=== PATIENT | female | born 1965 | race Caucasian/White ===

== ENCOUNTER 2019-12-02 20:04 | Emergency (ER) | payer MEDICAID ==
[~2019-12-02] VITALS: Ht 165.1 cm; Wt 77.3 kg
[2019-12-02 20:17] VITALS: BP 124/87
[2019-12-02] MEDS ORDERED: TETanus/Pertussis (Acell)/Diphther VAC/PF (Tdap-Adult) 0.5ml syringe IMVAC ONE (21:20)
[2019-12-02] MEDS ORDERED: HYDROcodone/acetaminophen 5mg/325mg tablet PO ONE (21:20)
[2019-12-02] MEDS ORDERED: HYDR-3965 PO (21:43)
[2019-12-02] MEDS ORDERED: CLIN-90 PO (21:43)
== END 2019-12-02 23:08 | disposition home or self-care (01) ==
LOC: ER 20:04
DX: S50.811A Abrasion of right forearm, initial encounter (principal); S61.551A Open bite of right wrist, initial encounter; Z98.890 Other specified postprocedural states; Z88.0 Allergy status to penicillin; Z79.2 Long term (current) use of antibiotics; Z79.899 Other long term (current) drug therapy; W54.0XXA Bitten by dog, initial encounter; Y93.89 Activity, other specified; Y92.89 Other specified places as the place of occurrence of the external cause; Y99.8 Other external cause status
CPT/HCPCS: 73090; 90471; 90715; 99283

== ENCOUNTER 2021-11-22 06:14 | Day surgery (SDC) | payer MEDICARE, MEDICAID ==
[2021-11-15 15:41] LABS: BASOPHILS # (AUTO) 0.1 X10'3 (0-0.2); BASOPHILS % (AUTO) 1.1 % (0-1); EOSINOPHILS # (AUTO) 0.1 X10'3 (0-0.9); EOSINOPHILS % (AUTO) 1.9 % (0-6); MEAN CORPUSCULAR HEMOGLOBIN 28.3 PG (27.0-31.0); MEAN CORPUSCULAR HGB CONC 33.4 g/dL (33.0-36.5); MEAN CORPUSCULAR VOLUME 84.6 FL (78-98); MEAN PLATELET VOLUME 8.3 FL (7.4-10.4); MONOCYTES # (AUTO) 0.4 X10'3 (0-0.9); NEUTROPHILS # (AUTO) 5.2 X10'3 (1.8-7.7); PRE OP HEMATOCRIT 40.7 % (35.0-45.0); PRE OP HEMOGLOBIN 13.6 g/dL (12.0-16.0); PRE OP PLATELET COUNT 262 X10'3 (140-440); RED BLOOD COUNT 4.82 X10'6 (4.20-5.60); RED CELL DISTRIBUTION WIDTH 13.9 % (11.5-14.5)
[2021-11-15 16:26] LABS: ALBUMIN 4.6 G/DL (3.4-5.0); ALBUMIN/GLOBULIN RATIO 1.4 (1.1-1.5); BLOOD UREA NITROGEN 22 MG/DL (7-18); BUN/CREATININE RATIO 28.2 (6.6-38.0); CALCIUM 9.4 MG/DL (8.5-10.1); CHLORIDE 102 MMOL/L (99-107); CREATININE 0.78 MG/DL (0.40-0.90); PRE OP ALT 37 U/L (30-65); PRE OP ANION GAP 10 (8-16); PRE OP AST 23 U/L (10-37); PRE OP BILIRUB, TOTAL 0.3 MG/DL (0.0-1.0); PRE OP GLUCOSE 99 MG/DL (70-104); PRE OP SODIUM 139 MMOL/L (135-145); TOTAL PROTEIN 7.8 G/DL (6.4-8.2); eGFR 77 ML/MIN
[2021-11-15 17:21] LABS: PLATELET FUNCTION (ADP) 114 SECONDS (63-104)
[~2021-11-22] VITALS: Ht 165.1 cm; Wt 85.0 kg
[2021-11-22] VITALS (8 sets, daily range): BP systolic 133–161; BP diastolic 78–93
[~2021-11-22 06:14] MED LIST: ACET-2319 PO; ALPR-624 PO; DIPH-735 PO; ESZO3TAB44 PO; GABA-530 PO; LEVO137T24 PO; METH-348 PO; diazepam 5mg tablet PO ONE; famotidine 20mg tablet PO ONE; ringers solution, lacted 1,000 ML IV SCH
[2021-11-22] MEDS: oxymetazoline 15 ML nasal spray NS SCH ×3 (06:43→08:44)
[2021-11-22] MEDS ORDERED: mupirocin 2% ointment 22GM ONE (07:13)
[2021-11-22] MEDS ORDERED: LIDOcaine 1% W/epiNEPHrine 1:100,000 20ml vial ONE (07:13)
[2021-11-22] MEDS ORDERED: cocaine 4% topical solution 4ml bottle ONE (07:13)
[2021-11-22] MEDS ORDERED: oxymetazoline 15 ML nasal spray NS ONE (07:14)
[2021-11-22] MEDS ORDERED: sevoflurane 250ml liquid IH ONE (08:02)
[2021-11-22] MEDS ORDERED: FENTANYL CITRATE/PF 50 MCG/1 ML VIAL ONE ×2 (08:04→08:11)
[2021-11-22] MEDS ORDERED: midazolam 1 mg/ML 2ml injection ONE (08:05)
--- NOTE | 2021-11-22 09:19 | NUR ---
Received from OR via [facility] , accompanied by Anesthesiologist GABRIELA and report given by Anesthesiolgist. BILATERAL NASAL PACKING INTACT, 20G RAC LR 100, VSS.MEDICATED FOR HTN ON ARRIVAL.WILL CONTINUE TO ASSESS. Addendum: 11/22/21 at 0938 by Blanka Patterson RN Amended: Links added.
[2021-11-22] MEDS ORDERED: proCHLORperazine 10 MG/2 ml inj IV PRN (09:30)
[2021-11-22] MEDS ORDERED: meperidine/PF 25mg/ml syringe IV PRN ×3 (09:30)
[2021-11-22] MEDS ORDERED: ringers solution, lacted 1,000 ML IV SCH (09:30)
[2021-11-22] MEDS ORDERED: ondansetron/PF 4mg/2ml inj IV PRN (09:30)
[2021-11-22] MEDS ORDERED: morphine 2 MG/ML inj. syringe IV PRN (09:30)
[2021-11-22] MEDS ORDERED: morphine 4 MG/ML inj SYRINge IV PRN (09:30)
[2021-11-22] MEDS ORDERED: salt irrigation nasal spray 45 ML SPRAY NS PRN (10:01)
[2021-11-22] MEDS ORDERED: propofol inj 20 ML IV ONE (10:15)
[2021-11-22] MEDS ORDERED: ondansetron/PF 4mg/2ml inj ONE (10:15)
[2021-11-22] MEDS ORDERED: labetalol 20mg/4ml (5mg/ml) syringe IV ONE (10:15)
[2021-11-22] MEDS ORDERED: dexamethasone sod phosphate 4mg/ml inj. ONE (10:15)
[2021-11-22] MEDS ORDERED: LIDOcaine 2% (20mg/ml) 5ml vial ONE (10:15)
--- NOTE | 2021-11-22 10:29 | NUR ---
IV D/C'D NO COMPLICATIONS. PT MET ALL D/C CRITERIA. MUSTACHE DRESSING IN PLACE, VSS. UNDERSTAND ALL D/C INSTRUCTIONS. ALL QUESTIONS ANSWERED. UPON D/C TO DAUGHTER, REINFORCED PT. NEEDS TO READ D/C PAPERWORK AGAIN WITH DAUGHTER. PT HAS NO QUESTIONS, SENT HOME WITH FAMILY Addendum: 11/22/21 at 1146 by Blanka Patterson RN Amended: Links added.
== END 2021-11-22 10:29 | disposition home or self-care (01) ==
LOC: PAS 06:14
PROVIDERS: ATTEND Otolaryngology
DX: J34.2 Deviated nasal septum (principal); J34.3 Hypertrophy of nasal turbinates; E06.3 Autoimmune thyroiditis; F41.9 Anxiety disorder, unspecified; Z20.822 Contact with and (suspected) exposure to COVID-19; Z98.890 Other specified postprocedural states; Z72.89 Other problems related to lifestyle; Z88.0 Allergy status to penicillin; Z79.899 Other long term (current) drug therapy; Z79.01 Long term (current) use of anticoagulants
CPT/HCPCS: 30140; 30520; 36415; 80053; 82948; 85025; 85576; 85610; 85730; 87635; 93005; A6402; C9250; C9803; J1100; J2250; J2405; J2704; J3010; J3490; J7030; J7120; U0003; U0005; Z7506; Z7508; Z7512; 88300; A4618; A7000

== ENCOUNTER 2022-02-08 14:21 | Emergency (ER) | payer MEDICARE, MEDICAID ==
[~2022-02-08] VITALS: Ht 165.1 cm; Wt 86.4 kg
[~2022-02-08 14:21] MED LIST changes: -diazepam 5mg tablet PO ONE; -famotidine 20mg tablet PO ONE; -ringers solution, lacted 1,000 ML IV SCH
[2022-02-08 15:05] VITALS: BP 152/92
[2022-02-08] MEDS ORDERED: DOXY100C43 PO (17:15)
== END 2022-02-08 18:03 | disposition home or self-care (01) ==
LOC: ER 14:21
DX: S46.321A Laceration of muscle, fascia and tendon of triceps, right arm, initial encounter (principal); Z98.890 Other specified postprocedural states; Z88.0 Allergy status to penicillin; Z79.2 Long term (current) use of antibiotics; Z79.899 Other long term (current) drug therapy; W54.0XXA Bitten by dog, initial encounter; Y93.89 Activity, other specified; Y92.89 Other specified places as the place of occurrence of the external cause; Y99.8 Other external cause status
CPT/HCPCS: 12002; 99282; 99283

== ENCOUNTER 2022-10-13 10:39 | Emergency (ER) | payer MEDICARE, MEDICAID ==
[~2022-10-13] VITALS: Ht 165.1 cm; Wt 87.0 kg
[2022-10-13 11:42] LABS: BASOPHILS # (AUTO) 0.1 X10'3 (0-0.2); EOSINOPHILS # (AUTO) 0.1 X10'3 (0-0.9); EOSINOPHILS % (AUTO) 1.8 % (0-6); HEMATOCRIT 42.7 % (35.0-45.0); HEMOGLOBIN 14.2 g/dl (12.0-16.0); LYMPHOCYTES # (AUTO) 0.8 X10'3 (1.1-4.8); LYMPHOCYTES % (AUTO) 11.5 % (21-51); MEAN CORPUSCULAR HEMOGLOBIN 27.8 PG (27.0-31.0); MEAN CORPUSCULAR HGB CONC 33.4 g/dL (33.0-36.5); MEAN CORPUSCULAR VOLUME 83.3 FL (78-98); MEAN PLATELET VOLUME 8.5 FL (7.4-10.4); MONOCYTES # (AUTO) 0.5 X10'3 (0-0.9); MONOCYTES % (AUTO) 7.6 % (2-12); NEUTROPHILS # (AUTO) 5.2 X10'3 (1.8-7.7); NEUTROPHILS % (AUTO) 78.1 % (42-75); PLATELET COUNT 268 X10'3 (140-440); RED BLOOD COUNT 5.12 X10'6 (4.20-5.60); RED CELL DISTRIBUTION WIDTH 13.3 % (11.5-14.5); WHITE BLOOD COUNT 6.6 X10'3 (4.5-11.0)
[2022-10-13 11:43] LABS: ALANINE AMINOTRANSFERASE 137 U/L (12-78); ALBUMIN 4.3 G/DL (3.4-5.0); ALBUMIN/GLOBULIN RATIO 1.2 (1.1-1.5); ALKALINE PHOSPHATASE 135 IU/L (46-116); ANION GAP 9 (8-16); ASPARTATE AMINO TRANSFERASE 87 U/L (10-37); BILIRUBIN,TOTAL 0.4 MG/DL (0.1-1.0); BLOOD UREA NITROGEN 14 MG/DL (7-18); BUN/CREATININE RATIO 18.7 (6.6-38.0); CHLORIDE 103 MMOL/L (99-107); CREATININE 0.75 MG/DL (0.40-0.90); GLUCOSE 114 MG/DL (70-104); LIPASE 126 U/L (73-393); SODIUM 140 MMOL/L (135-145); TOTAL CARBON DIOXIDE 28.5 MMOL/L (24-32); eGFR 81 ML/MIN
[2022-10-13 11:52] LABS: CALCIUM 9.3 MG/DL (8.5-10.1)
[2022-10-13] MEDS ORDERED: iohexol 300mg/ml 100ml inj. ONE (11:54)
[2022-10-13] MEDS ORDERED: PANT20TA18 PO (12:37)
[2022-10-13 12:48] LABS: CLARITY,URINE SLIGHTLY CLOUDY (Clear); COLOR,URINE YELLOW (Yellow); GLUCOSE, URINE NEGATIVE (Neg); KETONES,URINE NEGATIVE (Neg); LEUKOCYTE ESTERASE ,URINE NEGATIVE (Neg); NITRITES, URINE NEGATIVE (Neg); OCCULT BLOOD,URINE NEGATIVE (Neg); PROTEIN,URINE NEGATIVE (Neg); UROBILINOGEN,URINE 0.2 E.U/dL (0.2-1.0)
[2022-10-13 12:56] LABS: UA COLLECTION TYPE NON-SPECIFIED
[2022-10-13 12:57] LABS: URINE HCG NEGATIVE (NEG)
[2022-10-13 13:05] LABS: MUCUS STRANDS NONE SEEN /LPF (Neg); RBC,URINE 0-2 /HPF (0-2); SQUAMOUS EPITHELIAL CELL,UR MANY /LPF (FEW); WBC,URINE 0-4 /HPF (0-4)
[2022-10-13 13:06] LABS: BACTERIA,URINE 2+ /HPF (Neg)
[2022-10-13 13:30] VITALS: BP 137/83
== END 2022-10-13 13:31 | disposition home or self-care (01) ==
LOC: ER 10:40
DX: K21.9 Gastro-esophageal reflux disease without esophagitis (principal); K76.0 Fatty (change of) liver, not elsewhere classified; E78.00 Pure hypercholesterolemia, unspecified; E07.9 Disorder of thyroid, unspecified; Z88.0 Allergy status to penicillin; Z79.899 Other long term (current) drug therapy; Z79.1 Long term (current) use of non-steroidal anti-inflammatories (NSAID); Z79.2 Long term (current) use of antibiotics
CPT/HCPCS: 36415; 74177; 80053; 81001; 81025; 83690; 85025; 99285; J3490; Q9967

== ENCOUNTER 2023-08-12 10:57 | Emergency (ER) | payer MEDICARE, MEDICAID ==
[~2023-08-12] VITALS: Ht 165.1 cm; Wt 91.4 kg
[~2023-08-12 10:57] MED LIST changes: +PANT20TA18 PO
[2023-08-12 11:01] VITALS: BP 134/88; PULSE 98; RESP 18; TEMP 97; O2SAT 98
[2023-08-12] MEDS ORDERED: CEFD300C3 PO (11:05)
--- NOTE | 2023-08-12 11:08 | NUR ---
PT SEEN AND DC FROM TRIAGE BY ANIMAL PATHOLOGY TEACHER
== END 2023-08-12 11:12 | disposition home or self-care (01) ==
LOC: ER 10:57
DX: H65.02 Acute serous otitis media, left ear (principal); E78.00 Pure hypercholesterolemia, unspecified; E03.9 Hypothyroidism, unspecified; Z88.0 Allergy status to penicillin; Z79.899 Other long term (current) drug therapy
CPT/HCPCS: 99283

== ENCOUNTER 2023-09-08 12:05 | Emergency (ER) | payer MEDICARE, MEDICAID ==
[~2023-09-08] VITALS: Ht 165.1 cm; Wt 92.8 kg
[2023-09-08] MEDS ORDERED: BENZ-38 PO (13:11)
[2023-09-08 13:21] VITALS: BP 146/94; PULSE 88; RESP 19; TEMP 97.8; O2SAT 96
== END 2023-09-08 13:26 | disposition home or self-care (01) ==
LOC: ER 12:05
DX: J01.90 Acute sinusitis, unspecified (principal); R05.9 Cough, unspecified; H65.92 Unspecified nonsuppurative otitis media, left ear; Z88.0 Allergy status to penicillin; Z79.899 Other long term (current) drug therapy
CPT/HCPCS: 99283

== ENCOUNTER 2023-11-20 10:54 | Day surgery (SDC) | payer MEDICARE, MEDICAID ==
[2023-11-20] VITALS (11 sets, daily range): BP systolic 121–146; BP diastolic 75–86; PULSE 83–89; RESP 12–16; TEMP 97.1; O2SAT 93–99
[~2023-11-20] VITALS: Ht 165.1 cm; Wt 91.0 kg
[2023-11-20] MEDS: famotidine 20mg tablet PO ONE (05:30)
[2023-11-20] MEDS: oxymetazoline 15 ML nasal spray NS ONE ×2 (05:30→14:52)
[2023-11-20] MEDS: tranexamic acid inj. 1,000 MG in normal saline IV soln 100ML IV ONE (05:30)
[~2023-11-20 10:54] MED LIST changes: -ACET-2319 PO; +DARI50TA PO; -DIPH-735 PO; -ESZO3TAB44 PO; -GABA-530 PO; +GABA800T11 PO; +LEVO125T PO; -LEVO137T24 PO; -METH-348 PO; +METH27TA11 PO; -PANT20TA18 PO; +ROSU10TA28 PO; +methylPREDNISolone acetate 80mg/ml inj**IM only ONE; +ringers solution, lacted 1,000 ML IV SCH
[2023-11-20] MEDS ORDERED: fentaNYL/PF 50MCG/1 ML 2ML syringe IV PRN ×2 (11:15)
[2023-11-20] MEDS ORDERED: hydrALAZINE 20mg/ml inj. IV PRN (11:15)
[2023-11-20] MEDS ORDERED: morphine 4 MG/ML inj SYRINge IV PRN (11:15)
[2023-11-20] MEDS ORDERED: ringers solution, lacted 1,000 ML IV SCH (11:15)
[2023-11-20] MEDS ORDERED: ondansetron/PF 4mg/2ml inj IV PRN (11:15)
[2023-11-20] MEDS ORDERED: labetalol 20mg/4ml (5mg/ml) syringe IV PRN (11:15)
[2023-11-20] MEDS ORDERED: morphine 2 MG/ML inj. syringe IV PRN (11:15)
[2023-11-20] MEDS: clindamycin-Cleocin 900mg/D5W 50 ML IV ONE (13:00)
[2023-11-20] MEDS ORDERED: LIDOcaine 2% (20mg/ml) 5ml vial ONE (13:06)
[2023-11-20] MEDS ORDERED: fentaNYL/PF 50MCG/1 ML 2ML syringe ONE (13:06)
[2023-11-20] MEDS ORDERED: ondansetron/PF 4mg/2ml inj ONE (13:06)
[2023-11-20] MEDS ORDERED: midazolam 1 mg/ML 2ml injection ONE (13:06)
[2023-11-20] MEDS ORDERED: dexamethasone sod phosphate 4mg/ml inj. ONE (13:06)
[2023-11-20] MEDS ORDERED: propofol inj 20 ML IV ONE (13:06)
[2023-11-20] MEDS ORDERED: sevoflurane 250ml liquid IH ONE (13:13)
[2023-11-20] MEDS ORDERED: labetalol 20mg/4ml (5mg/ml) syringe IV ONE (13:34)
[2023-11-20] MEDS ORDERED: acetaminophen 1,000mg/100ml IV 100 ML IV ONE (13:43)
[2023-11-20] MEDS: cocaine 4% topical solution 4ml bottle ONE (14:36)
[2023-11-20] MEDS: LIDOcaine 1% w/EPI 1:100,000 inj. MDV 50 ML VIAL ONE (14:37)
[2023-11-20] MEDS: epiNEPHrine 1 mg/ml 30ml MDV ONE (14:37)
[2023-11-20] MEDS: mupirocin 2% ointment 22GM ONE (14:42)
[2023-11-20] MEDS: dexamethasone 4mg/ml inj IV ONE (14:53)
[2023-11-20] MEDS: triamcinolone acetonide 40mg/ml inj IJ ONE (15:00)
[2023-11-20] MEDS: mupirocin 2% nasal ointment 1gm UD NS ONE (16:03)
[2023-11-20] MEDS: salt irrigation nasal spray 45 ML SPRAY NS PRN (16:03)
[2023-11-20] MEDS ORDERED: mupirocin 2% ointment 22GM TP SCH (20:00)
[2023-11-20] MEDS ORDERED: oxymetazoline 15 ML nasal spray NS SCH (20:00)
== END 2023-11-20 16:45 | disposition home or self-care (01) ==
LOC: PAS 10:54
PROVIDERS: ATTEND Otolaryngology
DX: H65.493 Other chronic nonsuppurative otitis media, bilateral (principal); H74.03 Tympanosclerosis, bilateral; J32.8 Other chronic sinusitis; F41.9 Anxiety disorder, unspecified; F90.9 Attention-deficit hyperactivity disorder, unspecified type; E78.5 Hyperlipidemia, unspecified; E06.3 Autoimmune thyroiditis; G89.29 Other chronic pain; M19.90 Unspecified osteoarthritis, unspecified site; E66.9 Obesity, unspecified; Z68.33 Body mass index [BMI] 33.0-33.9, adult; Z88.0 Allergy status to penicillin; Z98.890 Other specified postprocedural states; Z79.899 Other long term (current) drug therapy
CPT/HCPCS: 31253; 31267; 61782; 69436; 82948; 87070; 87075; 87077; 87186; 93005; A6402; J0131; J0171; J1040; J1100; J2250; J2405; J2704; J3010; J3301; J3490; J7030; J7050; J7120; Z7506; Z7508; Z7512; 88304; 88311; A4618; A6449; A7000

== ENCOUNTER 2024-10-02 10:25 | Emergency (ER) | payer MEDICARE, MEDICAID ==
[~2024-10-02] VITALS: Ht 165.1 cm; Wt 72.8 kg
[~2024-10-02 10:25] MED LIST changes: +GABA-1555 PO; -GABA800T11 PO; -ROSU10TA28 PO; +ROSU10TA72 PO; -methylPREDNISolone acetate 80mg/ml inj**IM only ONE; -ringers solution, lacted 1,000 ML IV SCH
[2024-10-02 12:44] VITALS: BP 141/86; PULSE 87; RESP 16; TEMP 98.2; O2SAT 96
== END 2024-10-02 12:46 | disposition home or self-care (01) ==
LOC: ER 10:26
DX: H65.02 Acute serous otitis media, left ear (principal); B34.9 Viral infection, unspecified; R07.89 Other chest pain; E78.00 Pure hypercholesterolemia, unspecified; E07.9 Disorder of thyroid, unspecified; Z88.0 Allergy status to penicillin; Z79.899 Other long term (current) drug therapy; Z98.890 Other specified postprocedural states
CPT/HCPCS: 36415; 71045; 84484; 93005; 99285